=== PATIENT | female | born 1995 | race Asian ===

== ENCOUNTER 2018-06-20 18:47 | Emergency (ER) | payer OTHER ==
[2018-06-20] MEDS ORDERED: LORazepam 2 MG/ML INJ IVP ONE (19:08)
--- NOTE | 2018-06-20 19:08 | EDPHY ---
General Time Seen by Provider: 06/20/18 18:56 Narrative: CHIEF COMPLAINT: Chest pain, anxiety HISTORY OF PRESENT ILLNESS: Patient presents to emergency department by private vehicle with complaints of chest pain and anxiety. Onset was 2 weeks ago. It has been constant in duration but does come and go with some periods of relief. It is described as a pressure type pain on the lower rib margins. [id number] at times. No worse with exertion. Does not radiate. No shortness of breath at this time. She does occasionally have some shortness of breath with this. She feels that it is related to anxiety. She says that her hands are tingling in that her feet or tingling. She has no fever, cough or chills. No redness, pain or swelling of the extremities. She has not take any oral contraceptives. She has no recent travel trauma or surgery. She has no previous incidence of venous thrombolic event. She does feel that it is related to anxiety, but she is concerned because it has not gone away since this morning at 7:00 a.m.. No other associated complaints or modifying factors REVIEW OF SYSTEMS: 10 systems were reviewed and negative with the exception of the elements mentioned in the history of present illness. PCP: None locally SPECIALISTS: None PAST MEDICAL HISTORY: Anxiety, depression PAST SURGICAL HISTORY: Denies surgical history SOCIAL HISTORY: Nonsmoker. [employer] student. Originally from [place] FAMILY HISTORY: Noncontributory. EXAMINATION: Vitals: Triage VS reviewed General Appearance: Alert, no distress. Anxious and fidgeting. Well- appearing. Head: normocephalic, atraumatic Eyes: Pupils equal and round, no conjunctival pallor or injection ENT, Mouth: Mucous membranes moist Neck: Normal inspection, supple, non-tender Respiratory: Lungs are clear to auscultation. No wheezing, rhonchi or crackles Cardiovascular: Regular rate and rhythm. No murmur. Good signs of perfusion distally. Gastrointestinal: Abdomen is soft and nontender Neurological: Cranial nerves 2-12 grossly intact. A&O, nonfocal, normal gait Skin: Warm and dry, no rash. Tattoo on the distal left volar forearm. There are multiple well-healed superficial lacerations to left volar forearm. Extremities: Nontender, no pedal edema. Symmetric range of motion. No pain with passive dorsiflexion of the ankles. No palpable cords. No evidence of DVT. Psychiatric: Mood and affect normal DIFFERENTIAL DIAGNOSES: Including but not limited to anxiety reaction, ACS, PE, pancreatitis, gastritis , reflux MDM: 7:00 p.m. Chest pressure with tingling of the hands and feet. Patient feels that it is related to anxiety, and I agree with this. She does appear to be anxious. Her pain is not exertional. She has no pleuritic pain. Her vital signs are within normal limits, and She is PERC negative. We have ordered chest x-ray and EKG. IV will be established. I have ordered IV Ativan laboratory studies. She is in no acute distress. 7:30 p.m. Chest x-ray unremarkable per Radiology. Troponin negative. I-STAT pending. 7:45 p.m. I-STAT laboratory study is also within normal limits. I have re-evaluated the patient. She has received 1 mg IV Ativan and states she is feeling better. She still has some mild epigastric discomfort. I have ordered a GI cocktail. 8:15 p.m. Patient re-evaluated. She is feeling better. We discussed discharge home with short course of anti anxiety medication. We discussed follow up with [facility] or primary care physician. We discussed ED precautions for any return of pain, exertional pain, shortness of breath, fever, diaphoresis or worsening anxiety. She is comfortable this plan. She is symptom free. She is well- appearing and discharged home stable condition. EKG interpretation: Dr. Dawson Sinus rhythm without ischemia or conduction delay. SUPERVISION: Patient was independently examined, but I discussed the case with my secondary supervising physician Dr. Dawson CONSULTATION: None - Diagnostics Imaging Results: Imaging Impressions Chest X-Ray 06/20/18 19:08 Impression: Negative. Imaging: I viewed and interpreted images myself - History Smoking Status: Never smoked - Objective Vital Signs: Initial Vital Signs Temperature (C) 98.1 F 06/20/18 18:50 Heart Rate 80 06/20/18 18:50 Respiratory Rate 18 06/20/18 18:50 Blood Pressure 98/71 L 06/20/18 18:50 O2 Sat (%) 100 06/20/18 18:50 O2 Delivery Mode Room Air Allergies/Adverse Reactions: No Known Allergies Allergy (Unverified 06/20/18 19:17) Home Medications: Medication Instructions Recorded Citalopram 06/20/18 Citalopram Hydrobromide 06/20/18 hydrOXYzine HCL [Hydroxyzine HCl] 50 mg PO Q6-8PRN PRN #12 tablet 06/20/18 Laboratory Results: 06/20/18 06/20/18 06/20/18 19:39 19:14 19:10 POC Hgb 14.6 gm/dL gm/dL (12.6-16.3) POC Hct 43 % % (38-47) POC Sodium 141 mEq/L mEq/L (135-145) POC Potassium 3.6 mEq/L mEq/L (3.3-5.0) POC Chloride 104 mEq/L mEq/L (97-110) POC BUN 12 mg/dL mg/dL (7-23) POC Creatinine 0.7 mg/dL mg/dL (0.6-1.0) POC Glucose 85 mg/dL mg/dL (70-100) POC Troponin I 0.00 ng/mL ng/mL (0.00-0.08) Lipase Beta HCG, Qual NEGATIVE 06/20/18 19:10 POC Hgb POC Hct POC Sodium POC Potassium POC Chloride POC BUN POC Creatinine POC Glucose POC Troponin I Lipase 148 IU/L IU/L (23-300) Beta HCG, Qual Medications Given: Discontinued Medications Al Hydroxide/Mg Hydroxide (Maalox Susp) 30 ml PO ONCE ONE Stop: 06/20/18 19:51 Last Admin: 06/20/18 20:13 Dose: 30 ml Hyoscyamine Sulfate (Levsin, Hyomax-Sl) 0.25 mg PO ONCE ONE Stop: 06/20/18 19:51 Last Admin: 06/20/18 20:13 Dose: 0.25 mg Lidocaine (Lidocaine 2% Viscous) 15 ml PO ONCE ONE Stop: 06/20/18 19:51 Last Admin: 06/20/18 20:13 Dose: 15 ml Lorazepam (Ativan Injection) 1 mg IVP EDNOW ONE Stop: 06/20/18 19:09 Last Admin: 06/20/18 19:15 Dose: 1 mg Point of Care Test Results: Chemistry 06/20/18 06/20/18 19:39 19:14 POC Sodium 141 mEq/L mEq/L (135-145) POC Potassium 3.6 mEq/L mEq/L (3.3-5.0) POC Chloride 104 mEq/L mEq/L (97-110) POC BUN 12 mg/dL mg/dL (7-23) POC Creatinine 0.7 mg/dL mg/dL (0.6-1.0) POC Glucose 85 mg/dL mg/dL (70-100) POC Troponin I 0.00 ng/mL ng/mL (0.00-0.08) ISTAT H&H 06/20/18 19:39 POC Hgb 14.6 gm/dL gm/dL (12.6-16.3) POC Hct 43 % % (38-47) Departure - Departure Disposition: Home, Routine, Self-Care Clinical Impression: Anxiety reaction, Sensation of chest pressure Condition: Good Instructions: Hydroxyzine (By mouth), Anxiety (ED), Anxiolysis in Adults (ED) Additional Instructions: 1. Medication as prescribed as needed for stress or anxiety 2. Follow up that [facility] at for further care and assistance. 3. ED precautions for any return of her pain, exertional pain, shortness of breath, sweating or worsening anxiety Referrals: [facility] [Other] - As per Instructions Stand Alone Forms: School Excuse Prescriptions: hydrOXYzine HCL [Hydroxyzine HCl] 50 mg PO Q6-8PRN PRN #12 tablet PRN Reason: Anxiety
[2018-06-20] MEDS ORDERED: MAG HYDROX/AL HYDROX/SIMETH 30 ML UDCUP PO ONE (19:50)
[2018-06-20] MEDS ORDERED: LIDOCAINE 2% VISCOUS 15 ML UDCUP PO ONE (19:50)
[2018-06-20] MEDS ORDERED: HYOSCYAMINE SULFATE 0.125 MG TAB PO ONE (19:50)
[2018-06-20 20:12] VITALS: BP 105/72
--- NOTE | 2018-06-25 20:22 | CPEKG ---
Test Reason : OPEN Blood Pressure : / mmHG Vent. Rate : 085 BPM Atrial Rate : 086 BPM P-R Int : 277 ms QRS Dur : 096 ms QT Int : 381 ms P-R-T Axes : 072 050 014 degrees QTc Int : 453 ms Sinus rhythm Confirmed by Jude Jackson ([id number]) on 06/25/2018 8:21:48 PM Referred By: Confirmed By:Jude Jackson
== END 2018-06-20 20:19 | disposition home or self-care (01) ==
DX: F41.1 Generalized anxiety disorder (principal); R07.9 Chest pain, unspecified; F32.9 Major depressive disorder, single episode, unspecified
CPT/HCPCS: 82435-PO; 82565-PO; 82947-PO; 84132-PO; 84295-PO; 84484-PO; 84520-PO; 85014-PO; 96374; J2060